=== PATIENT | male | born 1980 | race American Indian/Alaskan Native ===

== ENCOUNTER 2018-11-08 08:48 | Emergency (ER) | payer OTHER ==
[2018-11-08 08:58] VITALS: BP 132/94
[2018-11-08 09:19] VITALS: RESP 20; TEMP 99.7; O2SAT 96
[2018-11-08 10:05] VITALS: PULSE 107
--- NOTE | 2018-11-08 10:05 | C.PDOC ---
History Of Present Illness 37 year old male presents to the emergency department with complaints of flu- like symptoms of fever, cough, runny nose, sinus pressure, body aches since yesterday. He denies nausea, vomiting, or chills. He reports recent travel stating that he traveled to [facility] two weeks ago. Patient states that he was not able to go to work today. HPI: Influenza Time Seen by Provider: 11/08/18 09:06 Chief Complaint: Flu-like Symptoms History Per: Patient Exam Limitations: no limitations (2) Have you had recent travel within the past 21 days to any of the following countries: [place], [place], [place] or [place]?: Yes Onset/Duration Of Symptoms: Days Symptoms include: bodyaches, cough, other (runny nose, sinus pressure). denies: vomiting Past Medical History Reviewed: Historical Data, Nursing Documentation, Vital Signs Vital Signs: Last Vital Signs Temp 99.7 F H 11/08/18 09:19 Pulse 113 H 11/08/18 09:19 Resp 20 11/08/18 09:19 BP 132/94 H 11/08/18 08:54 Pulse Ox 96 11/08/18 09:19 - Medical History PMH: Sleep Apnea Surgical History: No Surg Hx Family History: States: No Known Family Hx - Social History Hx Alcohol Use: Yes Hx Substance Use: No - Immunization History Hx Tetanus Toxoid Vaccination: No Hx Influenza Vaccination: Yes Hx Pneumococcal Vaccination: No Review Of Systems Except As Marked, All Systems Reviewed And Found Negative. Constitutional: Positive for: Fever, Other (body aches). Negative for: Chills ENT: Positive for: Nose Discharge Respiratory: Positive for: Cough Gastrointestinal: Negative for: Nausea, Vomiting, Abdominal Pain Neurological: Negative for: Headache Physical Exam - Physical Exam Appears: Non-toxic, Other (sick) Skin: Normal Color, Warm, Dry Head: Atraumatic, Normacephalic Eye(s): bilateral: Other (watery, conjunctiva injected) Oral Mucosa: Moist Throat: Erythema (mild) Neck: Normal, Supple Chest: Symmetrical, No Tenderness Cardiovascular: Rhythm Regular, No Murmur Respiratory: Normal Breath Sounds, No Rales, No Rhonchi, No Wheezing Gastrointestinal/Abdominal: Soft, No Tenderness, No Guarding, No Rebound Neurological/Psych: Oriented x3, Normal Speech, Normal Cognition Medical Decision Making Medical Decision Making: Plan: Motrin 600mg PO Tessalon Perles 200mg PO Tylenol 975mg PO Influenza AB Serology - ECG O2 Sat by Pulse Oximetry: 96 (RA) Pulse Ox Interpretation: Normal Disposition Counseled Patient/Family Regarding: Diagnosis, Need For Followup, Rx Given - Disposition Disposition: HOME/ ROUTINE Disposition Time: 09:59 Condition: STABLE Additional Instructions: Follow up with your doctor as needed. Get extra rest. Drink plenty fluids. Prescriptions: Benzonatate [Tessalon Perles] 200 mg PO TID #30 sgl Ibuprofen [Motrin] 600 mg PO TID #15 tab Promethazine/Phenyleph/Codeine [Jqaevhghslas-NH-Usienzc Syrup] 10 ml PO HS #120 ml Instructions: Viral Exanthem (DC) Forms: General Discharge Instructions, [facility] (Maori), Work Excuse - POA Present On Arrival: None - Clinical Impression Clinical Impression: Influenza-like illness - Scribe Statement The provider has reviewed the documentation as recorded by the Scribe (Facundo Joseph) Provider Attestation: All medical record entries made by the Scribe were at my direction and personally dictated by me. I have reviewed the chart and agree that the record accurately reflects my personal performance of the history, physical exam, medical decision making, and the department course for this patient. I have also personally directed, reviewed, and agree with the discharge instructions and disposition.
== END 2018-11-08 10:24 | disposition home or self-care (01) ==
LOC: C.ER 08:48
DX: J11.1 Influenza due to unidentified influenza virus with other respiratory manifestations (principal)

== ENCOUNTER 2018-11-12 08:54 | Emergency (ER) | payer OTHER ==
[2018-11-12 09:03] VITALS: TEMP 99.6; O2SAT 98; BMI 31.2
[2018-11-12] MEDS ORDERED: Albuterol 0.083% Inhal Sol (2.5 mg/3 mL) UD INH STA (09:31)
[2018-11-12] MEDS ORDERED: Albuterol 0.083% Inhal Sol (2.5 mg/3 mL) UD ONE (09:31)
--- NOTE | 2018-11-12 09:31 | C.PDOC ---
History Of Present Illness 37 years old male presents to ED for complaints of persistent cough that began 6 days ago. Patient was seen 5 days ago for the same viral syndrome and administered two cough medications and motrin. Patient states his main complaint is for evaluation of worsening cough, mainly at triggered at night when he sleeps flat. He reports once he wakes up and walks around the cough subsides. Denies fever, asthma, nausea, vomiting, or diarrhea. Patient states using a neti-pot to help with sinus congestion. He also reports new onset voice change since several days ago. Time Seen by Provider: 11/12/18 09:14 Chief Complaint (Nursing): Flu-like Symptoms History Per: Patient History/Exam Limitations: no limitations Onset/Duration Of Symptoms: Hrs Current Symptoms Are (Timing): Still Present Sick Contacts (Context): None Associated Symptoms: Cough, Nasal Congestion Ear Symptoms: Bilateral: None Recent travel outside of the [place]: No Past Medical History Reviewed: Historical Data, Nursing Documentation, Vital Signs Vital Signs: Last Vital Signs Temp 99.6 F 11/12/18 09:00 Pulse 117 H 11/12/18 09:00 Resp 19 11/12/18 09:00 BP 155/106 H 11/12/18 09:00 Pulse Ox 98 11/12/18 09:00 - Medical History PMH: Sleep Apnea Family History: States: No Known Family Hx - Social History Hx Alcohol Use: Yes Hx Substance Use: No - Immunization History Hx Tetanus Toxoid Vaccination: Yes Hx Influenza Vaccination: Yes Hx Pneumococcal Vaccination: No Review Of Systems Constitutional: Negative for: Fever, Chills ENT: Positive for: Nose Congestion Respiratory: Positive for: Cough Gastrointestinal: Negative for: Nausea, Vomiting, Diarrhea Skin: Negative for: Rash Neurological: Negative for: Weakness, Numbness Physical Exam - Physical Exam Appears: Non-toxic, No Acute Distress Skin: Normal Color, Warm, Dry, No Rash Head: Atraumatic, Normacephalic Eye(s): bilateral: Normal Inspection, PERRL, EOMI Nose: Other (Sinus congestion ) Oral Mucosa: Moist Throat: Other (laryngitis) Neck: Normal ROM, Supple Chest: Symmetrical, No Tenderness Cardiovascular: Rhythm Regular, No Murmur Respiratory: Normal Breath Sounds, No Rales, No Rhonchi, No Wheezing, Other (NARD) Gastrointestinal/Abdominal: Soft, No Tenderness Extremity: Normal ROM Extremity: Bilateral: Atraumatic, Normal Color And Temperature, Normal ROM Pulses: Left Radial: Normal, Right Radial: Normal Neurological/Psych: Oriented x3, Normal Speech Gait: Steady ED Course And Treatment O2 Sat by Pulse Oximetry: 98 (RA) Pulse Ox Interpretation: Normal - Radiology CXR: Interpreted by Me CXR Interpretation: Yes: No Acute Disease Nexus Criteria: Negative - Other Rad CXR X-Ray: Viewed By Me, Read By Radiologist Interpretation: Date of service: 11/12/2018. HISTORY: COUGH. COMPARISON: No prior. TECHNIQUE: Chest PA and lateral. FINDINGS: LUNGS: No active pulmonary disease. PLEURA: No significant pleural effusion identified. No pneumothorax apparent. CARDIOVASCULAR: No aortic atherosclerotic calcification present. Normal cardiac size. No pulmonary vascular congestion. OSSEOUS STRUCTURES: No significant abnormalities. VISUALIZED UPPER ABDOMEN: Normal. OTHER FINDINGS: None. IMPRESSION: No active disease. . Concordant results with the preliminary interpretation rendered by the emergency department physician\PA at the conclusion of the procedure. Medical Decision Making Medical Decision Making: Plan: * CXR * Albuterol nebulizer treatment/ peak flow Progress: Advised cough is probably due to nasal drip. Advised to adjust sleeping position and care instructions. Patient states he feels better at this time and denies any other complaints. Patient is stable for discharge and will be discharged. Return if symptoms worsen or persist. Disposition Counseled Patient/Family Regarding: Studies Performed, Diagnosis, Need For Followup, Rx Given - Disposition Referrals: YOUR,PMD [Other] Disposition: HOME/ ROUTINE Disposition Time: 10:01 Condition: IMPROVED Additional Instructions: Use a humidifier or vaporizer. Using a cool mist humidifier can help to raise the moisture level in the air. ... Try a saline nasal mist. A saline nasal mist several times a day may help thin out mucus. Avoid cigarette smoke. ... Gargle with warm salt water. Prescriptions: Pseudoephedrine HCl [Sudafed 24 Hour] 240 mg PO DAILY PRN #1 unit PRN Reason: Sinus Symptoms Forms: General Discharge Instructions, [facility] (Burmese), Work Excuse - Clinical Impression Clinical Impression: Cough - Scribe Statement The provider has reviewed the documentation as recorded by the Scribe Aleksandr Nina All medical record entries made by the Destinyibe were at my direction and personally dictated by me. I have reviewed the chart and agree that the record accurately reflects my personal performance of the history, physical exam, medical decision making, and the department course for this patient. I have also personally directed, reviewed, and agree with the discharge instructions and disposition.
[2018-11-12 10:20] VITALS: BP 163/96; PULSE 87; RESP 20
--- NOTE | 2018-11-12 11:17 | RAD ---
Date of service: 11/12/2018 HISTORY: COUGH COMPARISON: No prior. TECHNIQUE: Chest PA and lateral FINDINGS: LUNGS: No active pulmonary disease. PLEURA: No significant pleural effusion identified. No pneumothorax apparent. CARDIOVASCULAR: No aortic atherosclerotic calcification present. Normal cardiac size. No pulmonary vascular congestion. OSSEOUS STRUCTURES: No significant abnormalities. VISUALIZED UPPER ABDOMEN: Normal. OTHER FINDINGS: None. IMPRESSION: No active disease. Concordant results with the preliminary interpretation rendered by the emergency department physician procedure.
== END 2018-11-12 10:20 | disposition home or self-care (01) ==
LOC: C.ER 08:54
DX: R05 Cough (principal)